=== PATIENT | male | born 1940 | race Two or more races ===

== ENCOUNTER 2017-01-03 18:26 | Emergency (ER) | payer MEDICARE, MEDICAID ==
[~2017-01-03] VITALS: Ht 160 cm; Wt 77.6 kg
[2017-01-03 18:40] VITALS: BP 119/46
[2017-01-03] MEDS ORDERED: NEOMYCIN-BACITRACIN-POLYM UNITDOSE PKG TOP OINT TOP ONE (22:00)
== END 2017-01-03 21:58 | disposition home or self-care (01) ==
LOC: ER 18:26
DX: L03.032 Cellulitis of left toe (principal); L60.0 Ingrowing nail; Z88.6 Allergy status to analgesic agent